=== PATIENT | female | born 1980 | race Caucasian/White ===

== ENCOUNTER 2024-05-03 12:55 | Emergency (ER) | payer MEDICAID, OTHER ==
[~2024-05-03] VITALS: Ht 167.6 cm; Wt 75.0 kg
[2024-05-03 12:58] VITALS: O2SAT 98
[2024-05-03] MEDS ORDERED: NAPR-681 MT (20:27)
[2024-05-03 21:00] VITALS: BP 112/80; PULSE 79; RESP 18; TEMP 36.83628; O2SAT 99
[2024-05-03 21:05] VITALS: TEMP 98.3
[2024-05-03] MEDS: ACETAMINOPHEN 325MG TABLET PO NR (21:05)
== END 2024-05-03 21:09 | disposition home or self-care (01) ==
LOC: ER 12:55
DX: S00.83XA Contusion of other part of head, initial encounter (principal); S00.93XA Contusion of unspecified part of head, initial encounter; S20.212A Contusion of left front wall of thorax, initial encounter; Y04.0XXA Assault by unarmed brawl or fight, initial encounter; Y93.89 Activity, other specified; Y92.89 Other specified places as the place of occurrence of the external cause; Y99.8 Other external cause status
CPT/HCPCS: 70486; 99284